=== PATIENT | female | born 1965 | race Caucasian/White ===

== ENCOUNTER 2024-06-21 07:00 | Observation (INO) | payer OTHER ==
[2024-06-21] MEDS ORDERED: MORPHINE 4 MG/ML SYR ONE (07:13)
[2024-06-21] MEDS ORDERED: ONDANSETRON 4 MG/2 ML VIAL ONE (07:13)
[2024-06-21 07:27] LABS: Absolute Basophils 0.1 K/uL (0-0.5); Absolute Eosinophils 0.3 K/uL (0-0.5); Absolute Monocytes 0.4 K/uL (0.1-1.3); Absolute Neutrophil 2.4 K/uL (1.8-8.0); Basophils % 1.1 % (0-1.3); Eosinophils % 4.3 % (0-4.4); Hemoglobin 13.8 g/dL (12.0-15.0); Lymphocytes % 48.6 % (15.3-44.8); MCH 26.9 pg (27.0-35.0); MCHC 32.8 g/dL (32.0-36.0); MCV 81.9 fL (80-100); MPV 7.1 fL (7.6-11.3); Monocytes % 6.6 % (3.3-12.3); Neutrophils % 39.4 % (41.7-73.7); Nucleated Red Blood Cells % 0.1 % (0-0); Platelets 237 thou/uL (152-406); RBC Red Blood Cell Count 5.13 M/uL (3.86-4.86); Red Cell Distribution Width 13.7 % (12.1-15.2)
[2024-06-21 07:41] LABS: ALT/SGPT 23 U/L (13-56); AST/SGOT 14 U/L (15-37); Albumin 3.5 g/dL (3.4-5.0); Albumin/Globulin Ratio 1.1 (1.1-1.8); Alkaline Phosphatase 54 U/L (45-117); BUN Blood Urea Nitrogen 19 mg/dL (7-18); Bicarbonate 25 mEq/L (21-32); Bilirubin Total 0.5 mg/dL (0.2-1.0); Globulin 3.3 g/dL (2.3-3.5); Glomerular Filtration Rate 98 ml/min (=/>90); Glucose Level 117 mg/dL (74-106); NT PRO-BNP 32 pg/mL (<125); Protein, Total 6.8 g/dL (6.4-8.2); Sodium Level 141 mEq/L (136-145)
[2024-06-21 07:46] LABS: Bilirubin Direct < 0.2 mg/dL (0-0.2); Bilirubin Indirect, Calculated 0.3 mg/dL (0.2-0.8); PT Prothrombin Time 10.1 SECONDS (9.4-12.5); Protime INR 0.96; Troponin High Sensitivity < 3.0 pg/mL (<58.9)
[2024-06-21 07:51] LABS: D-Dimer < 0.215 FEUug/mL (0-0.500)
--- NOTE | 2024-06-21 08:03 | RAD REPORT ---
EXAM: Chest Single View HISTORY: CHEST PAIN COMPARISON: None. FINDINGS: LUNGS/PLEURA: The lungs are clear. No pleural effusions or pneumothorax. No pulmonary edema. MEDIASTINUM: The mediastinal silhouette is within normal limits. CARDIAC: The cardiac silhouette is within normal limits. UPPER ABDOMEN: No significant abnormality. BONES: No acute abnormality. LINES/TUBES/OTHER: N/A IMPRESSION: No evidence of acute cardiopulmonary disease.
--- NOTE | 2024-06-21 08:45 | ER ---
Nurse's Notes [facility] Name: Jimbo Lyons Age: 59 yrs Sex: Female : 1965 Arrival Date: 06/21/2024 Time: 07:00 Bed 5 Private MD: Diagnosis: Chest pain, unspecified Presentation: 06/21 07:02 Chief complaint: Patient states: Left side CP, radiates to left shoulder, with nausea jl7 since last night. 07:02 Coronavirus screen: At this time, the client does not indicate any symptoms associated jl7 with coronavirus-19. Ebola Screen: No symptoms or risks identified at this time. Initial Sepsis Screen: Does the patient meet any 2 criteria? No. Patient's initial sepsis screen is negative. Does the patient have a suspected source of infection? No. Patient's initial sepsis screen is negative. Risk Assessment: Do you want to hurt yourself or someone else? Patient reports no desire to harm self or others. Onset of symptoms was June 20, 2024. 07:02 Method Of Arrival: Ambulatory 7 07:02 Acuity: KRYSTEN 2 jl7 Triage Assessment: 07:10 General: Appears in no apparent distress. uncomfortable, Behavior is calm, cooperative, jl7 appropriate for age. Pain: Complains of pain in anterior aspect of left upper chest Pain radiates to left arm Pain currently is 8 out of 10 on a pain scale. Quality of pain is described as sharp, stabbing, Pain began 1 day ago. Is continuous. Neuro: Level of Consciousness is awake, alert, obeys commands, Oriented to person, place, time, situation. Cardiovascular: Patient's skin is warm and dry. Rhythm is regular. Respiratory: Airway is patent Respiratory effort is even, unlabored, Respiratory pattern is regular, symmetrical. Derm: Skin is pink, warm \T\ dry. Historical: - Allergies: 07:27 Iodine; jl7 - Home Meds: 07:27 amlodipine 5 mg oral tablet [Active]; jl7 - PMHx: 07:27 Hypertensive disorder; jl7 - PSHx: 07:27 Appendectomy; Ligation of fallopian tube; breast aug; tumor (benign) clips; jl7 - Immunization history:: Adult Immunizations unknown. - Infectious Disease History:: Denies. - Social history:: Smoking status: Patient denies any tobacco usage or history of. - Family history:: not pertinent. - Hospitalizations: : No recent hospitalization is reported. Screenin:18 [facility] ED Fall Risk Assessment (Adult) History of falling in the last 3 months, ld1 including since admission No falls in past 3 months (0 pts) Confusion or Disorientation No (0 pts) Intoxicated or Sedated No (0 pts) Impaired Gait No (0 pts) Mobility Assist Device Used No (0 pt) Altered Elimination No (0 pt) Score/Fall Risk Level 0 - 2 = Low Risk Oriented to surroundings, Maintained a safe environment, Hourly rounding (assess needs \T\ fall precautionary measures) done. Abuse screen: Denies threats or abuse. Denies injuries from another. Nutritional screening: No deficits noted. Tuberculosis screening: No symptoms or risk factors identified. Assessment: 07:18 General: Appears in no apparent distress. uncomfortable, Behavior is cooperative, ld1 anxious. Pain: Complains of pain in chest Pain radiates to anterior aspect of right shoulder Pain currently is 8 out of 10 on a pain scale. Quality of pain is described as sharp, shooting, throbbing, Pain began suddenly, Is continuous. Neuro: Level of Consciousness is awake, alert, obeys commands, Oriented to person, place, time, situation, Appropriate for age. Cardiovascular: Capillary refill < 3 seconds Patient's skin is warm and dry. Rhythm is sinus rhythm. Respiratory: Airway is patent Respiratory effort is even, unlabored. GI: Abdomen is flat, non-distended. : No signs and/or symptoms were reported regarding the genitourinary system. EENT: No signs and/or symptoms were reported regarding the EENT system. Derm: No signs and/or symptoms reported regarding the dermatologic system. Musculoskeletal: No signs and/or symptoms reported regarding the musculoskeletal system. 11:21 Reassessment: Pt states that when they turned her on her side for her ultrasound, she cm10 started having pain. Pt requesting pain meds at this time. ERP made aware. 11:21 General: Appears in no apparent distress. uncomfortable, Behavior is cooperative. cm10 11:21 Neuro: No deficits noted. Level of Consciousness is awake, alert, obeys commands, cm10 Oriented to person, place, time, situation. Respiratory: No deficits noted. Airway is patent Respiratory effort is even, unlabored, Respiratory pattern is regular, symmetrical. Vital Signs: 07:18 BP 160 / 91; Pulse 91; Resp 18; Pulse Ox 100% on R/A; Pain 8/10; ld1 08:08 BP 152 / 90; Pulse 74; Resp 15; Pulse Ox 99% ; ko1 10:00 BP 167 / 101; Pulse 74; Resp 15; Pulse Ox 99% ; cm10 11:00 BP 166 / 94; Pulse 84; Resp 15; Pulse Ox 99% ; cm10 11:45 BP 138 / 78; Pulse 84; Resp 15; Pulse Ox 98% ; cm10 07:18 Pain Scale: Adult ld1 ED Course: 07:01 Patient arrived in ED. mr 07:02 Eduardo Coker MD is Attending Physician. rn 07:10 Arm band placed on right wrist. jl7 07:17 Basic Metabolic Panel Sent. ko1 07:17 CBC with Diff Sent. ko1 07:17 D-Dimer Sent. ko1 07:17 LFT's Sent. ko1 07:17 NT PRO-BNP Sent. ko1 07:17 PT-INR Sent. ko1 07:17 Troponin HS Sent. ko1 07:18 No provider procedures requiring assistance completed. Inserted saline lock: 20 gauge ld1 in right antecubital area, using aseptic technique. Blood collected. Flushed with 10 mL NS. 07:18 Patient has correct armband on for positive identification. Placed in gown. Bed in low ld1 position. Call light in reach. Side rails up X2. threat monitoring analyst on. Pulse ox on. NIBP on. Door closed. Noise minimized. Warm blanket given. 07:23 Fiorella Meade, GAIL is Primary Nurse. ko1 07:27 Triage completed. jl7 08:01 XRAY Chest (1 view) In Process Unspecified. EDMS 08:43 Albin Obregon is Hospitalizing Provider. rn 11:45 Patient maintains SpO2 saturation greater than 95% on room air. cm10 11:45 Patient admitted, IV remains in place. cm10 11:45 Provided Education on: Need for admit.. cm10 Administered Medications: 07:18 Drug: morphine IVP or IV 4 mg IVP once over 4 mins Route: IVP; Infused Over: 4 mins; ld1 Site: right antecubital; 07:33 Follow up: Response: No adverse reaction ko1 07:18 Drug: Ondansetron IVP 4 mg IVP once; over 2 minutes Route: IVP; Site: right antecubital;ko1 07:33 Follow up: Response: No adverse reaction ko1 08:53 Drug: Aspirin PO Chewable Tablet 324 mg PO once; 81 mg tablets x 4 Route: PO; ld1 09:08 Follow up: Response: No adverse reaction ko1 08:53 Drug: Nitroglycerin Sublingual 0.4 mg Sublingual once Route: Sublingual; ld1 09:08 Follow up: Response: No adverse reaction ko1 Medication: 11:45 VIS not applicable for this client. cm10 Outcome: 08:44 Decision to Hospitalize by Provider. rn 11:45 Admitted to ER Hold. Please see [facility] for further documentation. cm10 11:45 Condition: good cm10 11:45 Instructed on the need for admit, 18:11 Patient left the ED. cm10 Signatures: Dispatcher [employer] EDTX Elvia Serrano, Reg Reg mr Eduardo Coker MD MD rn Leal, Jahala, RN RN jl7 Gianna Skinner RN RN meg1 Fiorella Meade RN RN Puja Appiah RN RN cm10 Corrections: (The following items were deleted from the chart) 07:30 07:27 Allergies: No Known Allergies; jl7 jl7 07:35 07:29 BP 128 / 59; Pulse 77bpm; Resp 18bpm; Pulse Ox 100% ET / Ventilator; ko1 ko 07:35 07:29 FiO2 60%, Rate 18 min, T.V. 300 ml, Peep 5 cm, Mode: CMV, ET 7.5 mm Oral, ko1 ko 18:09 11:45 IV discontinued, intact, bleeding controlled, No redness/swelling at site. cm10 Pressure dressing applied, cm10
--- NOTE | 2024-06-21 08:45 | EDPHYS ---
Physician Documentation [facility] Name: Jimbo Lyons Age: 59 yrs Sex: Female : 1965 Arrival Date: 06/21/2024 Time: 07:00 Bed 5 Private MD: ED Physician Eduardo Coker HPI: 06/21 08:39 This 59 yrs old Female presents to ER via Ambulatory with complaints of Chest Pain. rn 08:39 The patient or guardian reports chest pain that is located primarily in the anterior rn chest wall, left. Onset: last night. The pain radiates to the left shoulder, the left scapula. Associated signs and symptoms: Pertinent positives: nausea, Pertinent negatives: shortness of breath, syncope, vomiting. The chest pain is described as aching. Duration: The patient or guardian reports a single episode, that is still ongoing. Modifying factors: The symptoms are alleviated by nothing. the symptoms are aggravated by nothing. Severity of pain: At its worst the pain was moderate in the emergency department the pain has improved. The patient has not experienced similar symptoms in the past. Patient reports left-sided chest pain, radiates to left scapula and left shoulder, associated with nausea. No shortness of breath. No fever or chills. Last illness was 2 months ago. No swelling. Non-smoker. No history of DVT or PE.. Historical: - Allergies: 07:27 Iodine; jl7 - Home Meds: 07:27 amlodipine 5 mg oral tablet [Active]; jl7 - PMHx: 07:27 Hypertensive disorder; jl7 - PSHx: 07:27 Appendectomy; Ligation of fallopian tube; breast aug; tumor (benign) clips; jl7 - Immunization history:: Adult Immunizations unknown. - Infectious Disease History:: Denies. - Social history:: Smoking status: Patient denies any tobacco usage or history of. - Family history:: not pertinent. - Hospitalizations: : No recent hospitalization is reported. ROS: 08:39 Constitutional: Negative for fever, chills, and weight loss, Cardiovascular: Positive rn for chest pain Respiratory: Negative for shortness of breath, cough, wheezing, and pleuritic chest pain, Abdomen/GI: Positive for nausea Back: Negative for injury and pain, MS/Extremity: Negative for injury and deformity, Skin: Negative for injury, rash, and discoloration, Neuro: Negative for headache, weakness, numbness, tingling, and seizure, Exam: 08:39 Constitutional: This is a well developed, well nourished patient who is awake, alert, rn grabbing left chest wall with episodes of chest pain Head/Face: Normocephalic, atraumatic. Cardiovascular: Regular rate and rhythm . No pulse deficits. Respiratory: No increased work of breathing, no retractions or nasal flaring. Abdomen/GI: Soft, non-tender MS/ Extremity: Pulses equal, no cyanosis. Neurovascular intact. Full, normal range of motion. Equal circumference. Neuro: Awake and alert, GCS 15 10:19 ECG was reviewed by the Attending Physician. rn Vital Signs: 07:18 BP 160 / 91; Pulse 91; Resp 18; Pulse Ox 100% on R/A; Pain 8/10; ld1 08:08 BP 152 / 90; Pulse 74; Resp 15; Pulse Ox 99% ; ko1 10:00 BP 167 / 101; Pulse 74; Resp 15; Pulse Ox 99% ; cm10 11:00 BP 166 / 94; Pulse 84; Resp 15; Pulse Ox 99% ; cm10 11:45 BP 138 / 78; Pulse 84; Resp 15; Pulse Ox 98% ; cm10 07:18 Pain Scale: Adult ld1 MDM: 07:02 Medical Screening Exam initiated rn 08:39 Differential diagnosis: acute myocardial infarction, acute pericarditis, anxiety, rn coronary artery disease chest wall pain, costochondritis, esophagitis, gastritis, pleurisy, pneumonia, pneumothorax, pulmonary embolus, stable angina. Data reviewed: vital signs, nurses notes, lab test result(s), EKG, radiologic studies, plain films, and as a result, I will admit patient. Consideration of Admission/Observation Patient was admitted/placed on observation. Escalation of care including admission/observation considered. Counseling: I had a detailed discussion with the patient and/or guardian regarding the historical points, exam findings, and any diagnostic results supporting the discharge/admit diagnosis, lab results, radiology results, the need for further work-up and treatment in the hospital. ED course: No clear etiology of chest pain. Negative D-dimer. Chest x-ray negative. Stable vital signs. Will admit to hospitalist service for further care and consultation.. 06/21 07:09 Order name: Basic Metabolic Panel; Complete Time: 08:32 rn 06/21 07:09 Order name: CBC with Diff; Complete Time: 08:32 rn 06/21 07:09 Order name: D-Dimer; Complete Time: 08:32 rn 06/21 07:09 Order name: LFT's; Complete Time: 08:32 rn 06/21 07:09 Order name: NT PRO-BNP; Complete Time: 08:32 rn 06/21 07:09 Order name: PT-INR; Complete Time: 08:32 rn 06/21 07:09 Order name: Troponin HS; Complete Time: 08:32 rn 06/21 09:00 Order name: CBC with Automated Diff EDMS 06/21 09:00 Order name: CBC with Automated Diff EDMS 06/21 09:00 Order name: Troponin High Sensitivity EDMS 06/21 09:00 Order name: Troponin High Sensitivity EDMS 06/21 09:00 Order name: Troponin High Sensitivity EDMS 06/21 07:09 Order name: XRAY Chest (1 view); Complete Time: 08:32 rn 06/21 10:13 Order name: US Abdomen Limited rn 06/21 11:17 Order name: US EDMS 06/21 07:09 Order name: Cardiac monitoring; Complete Time: 07:15 rn 06/21 07:09 Order name: EKG - Nurse/Tech; Complete Time: 07:11 rn 06/21 07:09 Order name: IV Saline Lock; Complete Time: 07:15 rn 06/21 07:09 Order name: Labs collected and sent; Complete Time: 07:15 rn 06/21 07:09 Order name: O2 Per Protocol; Complete Time: 07:11 rn 06/21 07:09 Order name: O2 Sat Monitoring; Complete Time: 07:11 rn EC:19 Rate is 113 beats/min. Rhythm is regular. QRS [place] is Normal. CT interval is normal. rn QRS interval is normal. QT interval is normal. No Q waves. T waves are Normal. No ST changes noted. Clinical impression: Sinus tachycardia. Interpreted by me. Reviewed by me. Administered Medications: 07:18 Drug: morphine IVP or IV 4 mg IVP once over 4 mins Route: IVP; Infused Over: 4 mins; ld1 Site: right antecubital; 07:33 Follow up: Response: No adverse reaction ko1 07:18 Drug: Ondansetron IVP 4 mg IVP once; over 2 minutes Route: IVP; Site: right antecubital;ko1 07:33 Follow up: Response: No adverse reaction ko1 08:53 Drug: Aspirin PO Chewable Tablet 324 mg PO once; 81 mg tablets x 4 Route: PO; ld1 09:08 Follow up: Response: No adverse reaction ko1 08:53 Drug: Nitroglycerin Sublingual 0.4 mg Sublingual once Route: Sublingual; ld1 09:08 Follow up: Response: No adverse reaction ko1 Disposition Summary: 06/21/24 08:44 Hospitalization Ordered Notes: Hospitalization Status: Observation rn Provider: Albin Obregon rn Condition: Stable rn Problem: new rn Symptoms: are unchanged rn Bed/Room Type: Standard rn Location: [facility] ER HOLD(06/21/24 16:01) jl7 Room Assignment: ERHOLD-(06/21/24 16:01) jl7 Diagnosis - Chest pain, unspecified rn Forms: - Medication Reconciliation Form rn - SBAR form rn - Leadership Thank You Letter rn Signatures: Dispatcher [employer] EDJacklyn Ayala Roman, MD MD rn Leal, Jahala, RN RN jl7 Gianna Skinner RN RN ld1 Fiorella Meade, RN RN ko1 Corrections: (The following items were deleted from the chart) 07:30 07:27 Allergies: No Known Allergies; jl7 jl7 10:30 08:44 Telemetry/MedSurg (observation) rn bd 10:30 08:44 rn bd 15:37 10:30 [facility] ER HOLD bd bd 15:37 10:30 ERHOLD- bd bd 16:01 15:37 Telemetry/MedSurg (observation) bd jl7 16:01 15:37 223 bd jl7
[2024-06-21] MEDS ORDERED: ASPIRIN 81 MG CHEWABLE TABLET ONE (08:48)
[2024-06-21] MEDS ORDERED: NITROGLYCERIN 0.4 MG/TAB SL ONE (08:48)
--- NOTE | 2024-06-21 09:00 | P.SSS ---
Patient History Date of Service: 06/21/24 Reason for admission: chest pain History of Present Illness: Ms. Lyons is a 59-year-old female with past medical history of hypertension. She presented to the emergency department this morning with a history of "grabbing" chest pain since last p.m. She admits to nausea but denies palpitations, vomiting, shortness of breath, or dizziness. She states that pain radiates to her left shoulder. The ED has requested we admit her to rule out ACS. We will repeat troponin in 4 hours with probable discharge after third troponin around 2:00. Will recommend outpatient testing and follow-up with her PCP and Steam Press Tender. Allergies iodine Adverse Reaction (Verified 06/21/24 09:05) Home medications list reviewed: Yes Home Medications: Amlodipine [Norvasc] 5 mg PO DAILY 06/21/24 - Past Medical/Surgical History Has patient received pneumonia vaccine in the past: No Diabetic: No -: Hypertension -: Appendectomy -: BTL -: Breast augmentation Psychosocial/ Personal History: Lives at home with her Spouse, cat sanctuary in her garage. States she is very noncompliant with her medications. Does not take Amlodipine regularly (or at all). Had wt loss from 154 to 98# per diet. (will US gallbladder) - Family History Family History: Reviewed- Non-Contributory - Social History Smoking Status: Never smoker Alcohol use: No CD- Drugs: No Caffeine use: No Place of Residence: Home Review of Systems 10-point ROS is otherwise unremarkable General: Unremarkable Eyes: Unremarkable ENT: Unremarkable Respiratory: Unremarkable Cardiovascular: Chest Pain Gastrointestinal: Nausea, Vomiting Genitourinary: Unremarkable Musculoskeletal: Unremarkable Integumentary: Unremarkable Neurological: Unremarkable Lymphatics: Unremarkable Physical Examination - Vital Signs Blood Pressure: 123/88 Pulse: 86 Respirations: 20 Pulse Ox (%): 99 - Physical Exam General: Alert, In no apparent distress, Oriented x3 HEENT: Atraumatic, Normocephalic Neck: 2+ carotid pulse no bruit, JVD not distended Respiratory: Clear to auscultation bilaterally, Normal air movement Cardiovascular: No edema, Normal pulses, Regular rate/rhythm, Normal S1 S2 Capillary refill: <2 Seconds Gastrointestinal: Normal bowel sounds, Soft and benign Musculoskeletal: No clubbing, No swelling Integumentary: No rashes Lymphatics: No axilla or inguinal lymphadenopathy External genitalia: Deferred Rectal: Deferred - Studies Laboratory Data (last 24 hrs) 06/21/24 06/21/24 06/21/24 07:15 07:15 07:15 WBC 6.20 Hgb 13.8 Hct 42.0 Plt Count 237 PT 10.1 INR 0.96 Sodium 141 Potassium 4.0 BUN 19 H Creatinine 0.71 Glucose 117 H Total Bilirubin 0.5 AST 14 L ALT 23 Alkaline Phosphatase 54 Treatment Summary: Troponin x 3 negative, EKG x [address] elevation. Recommend patient stay compliant with amlodipine 5 mg p.o. daily and keep a blood pressure log. She needs to follow-up with Dr. Acuna and her truck crane operator helper. - Disposition Discharge Date: 06/21/24 Disposition: ROUTINE DISCHARGE Condition: GOOD Patient Discharge Instructions: Mrs. Lyons continues to intermittent atypical chest pain. Her blood pressure has trended down. Troponins x 3 less than 3.0. Repeat EKG with no ST elevation. Gallbladder ultrasound performed secondary to weight loss was negative for cholecystitis. Mrs. Lyons should follow up outpatient with both her PCP, Dr. Acuna and her Steam Press Tender. It is strongly recommended that she remain compliant with her amlodipine regimen. Diet: AHA Activity: Ad jeny Critical Care: No
--- NOTE | 2024-06-21 11:17 | RAD REPORT ---
Abdomen Exam Limited: 06/21/2024 11:06 AM CLINICAL HISTORY: chest pain STUDY: Limited right upper quadrant ultrasound of abdomen. COMPARISON: None. FINDINGS: Liver: Limited evaluation but grossly unremarkable. Bile ducts: No intrahepatic or extrahepatic biliary ductal dilatation. Common bile duct measures 2 mm. Gallbladder: Normal. IMPRESSION: Unremarkable exam.
[2024-06-21 13:40] VITALS: BMI 23.4
[2024-06-21 13:59] VITALS: BP 123/88; TEMP 98.4
[2024-06-21] MEDS: KETOROLAC 30 MG/ML INJ IV ONE (15:13)
[2024-06-21] MEDS: PANTOPRAZOLE 40 MG INJ IVP ONE ×2 (15:13→15:15)
[2024-06-21] MEDS ORDERED: SODIUM CHLORIDE 0.9% 10ML INJ IV PRN ×2 (15:15→15:27)
[2024-06-21] MEDS ORDERED: KETOROLAC 30 MG/ML INJ IV ONE (15:17)
[2024-06-21] MEDS: SIMETHICONE 125 MG TAB PO ONE (17:00)
[2024-06-21] MEDS ORDERED: SIMETHICONE 80 MG CHEWABLE TAB ONE (17:17)
[2024-06-22 02:05] VITALS: O2SAT 98
--- NOTE | 2024-06-27 12:39 | EKG ---
Test Date: 2024-06-21 Test Time: 15:35:55 Wood Web Weaving Machine Operator: DIEGO MEASUREMENT RESULTS: Intervals: Rate: 74 NH: 154 QRSD: 86 QT: 372 QTc: 412 [place]: P: 65 NH: 154 QRS: 52 T: 17 INTERPRETIVE STATEMENTS: Normal sinus rhythm Septal infarct, age undetermined Abnormal ECG No previous ECG available for comparison Electronically Signed On 06-27-24 12:23:48 ROTOR PILOT by Elvis Vee
--- NOTE | 2024-06-27 12:42 | EKG ---
Test Date: 2024-06-21 Test Time: 07:04:42 [place] Measurer: ANASTACIA MEASUREMENT RESULTS: Intervals: Rate: 113 AK: 144 QRSD: 86 QT: 324 QTc: 444 [place]: P: 71 AK: 144 QRS: 54 T: 46 INTERPRETIVE STATEMENTS: Sinus tachycardia Septal infarct, age undetermined Abnormal ECG No previous ECG available for comparison Electronically Signed On 06-27-24 12:24:57 POULTRY BREEDER by Elvis Vee
== END 2024-06-21 18:14 | disposition home health service (06) ==
LOC: ER 07:00 → INTOOBSV 08:56 → ERHOLD 08:56
PROVIDERS: ADMIT Internal Medicine; ATTEND Internal Medicine
DX: R07.89 Other chest pain (principal); I10 Essential (primary) hypertension; Z98.51 Tubal ligation status; Z90.49 Acquired absence of other specified parts of digestive tract; Z91.048 Other nonmedicinal substance allergy status; Z79.899 Other long term (current) drug therapy; Z91.148 Patient's other noncompliance with medication regimen for other reason
CPT/HCPCS: 93005 ×2; 85025; 80048; 36415; 85610; 85379; 80076; 84484 ×3; 83880; 71045; 76705; 96375; 96374; 99285; J2470; J2405